=== PATIENT | female | born 1980 | race Hispanic/Latino ===

== ENCOUNTER 2017-11-22 14:23 | Emergency (ER) | payer MEDICAID, SELFPAY | END 2017-11-22 14:47 | disposition home or self-care (01) | LOC: EDH 14:23 | DX: K04.7 Periapical abscess without sinus (principal) ==

== ENCOUNTER 2023-01-01 16:59 | Emergency (ER) | payer MEDICAID ==
[~2023-01-01] VITALS: Ht 152.4 cm; Wt 59.0 kg
[2023-01-01 17:03] VITALS: BP 154/83
[2023-01-01] MEDS ORDERED: IBUP-1493 PO (20:28)
[2023-01-01] MEDS ORDERED: CYCL-309 PO (20:28)
[2023-01-01] MEDS ORDERED: CYCLOBENZAPRINE HCL 10 MG TABLET PO ONE (21:00)
[2023-01-01] MEDS ORDERED: IBUPROFEN 800 MG TAB PO ONE (21:00)
== END 2023-01-01 21:59 | disposition home or self-care (01) ==
LOC: EDH 16:59
DX: M62.838 Other muscle spasm (principal); M54.2 Cervicalgia; H53.8 Other visual disturbances; Z79.899 Other long term (current) drug therapy; Z98.890 Other specified postprocedural states
CPT/HCPCS: 72050